=== PATIENT | female | born 1990 | race Caucasian/White ===

== ENCOUNTER 2016-03-03 04:08 | Emergency (ER) | payer BC ==
[2016-03-03] MEDS ORDERED: NS 0.9% 1000 ML* 1,000 ML IV ONE (04:38)
[2016-03-03] MEDS ORDERED: Morphine INJ* 2 MG/ML 1 ML CARPUJECT IV ONE ×2 (04:38→05:25)
[2016-03-03 05:02] LABS: Hematocrit 41 % (35-47); Hemoglobin 13.6 g/dl (12.0-16.0); Mean Corpuscular HGB Conc 34 g/dl (31-36); Mean Corpuscular Hemoglobin 31 pg (27-31); Mean Corpuscular Volume 91 fL (80-97); Mean Platelet Volume 8 um3 (7.4-10.4); Red Blood Count 4.46 10^6/ul (4.0-5.4); Red Cell Distribution Width 12 % (10.5-15); White Blood Count 6.5 10^3/ul (3.5-10.8)
--- NOTE | 2016-03-03 05:05 | ED ---
Santiago Rogers Billy, scribed for Neil Pelayo MD on 03/03/16 at 0445 . Abdominal Pain/Female - HPI Summary HPI Summary: Patient is a 25 year-old female coming to [facility] with epigastric abdominal pain radiating to the LUQ and back. She states that she was woken up by the pain this morning at 0100, and it has remained constant since onset. Severity 7/10 at this time. She took Zofran at 0330, but nothing makes the pain better or worse. She also reports intermittent "hot flashes." Denies any N/V/D or urinary symptoms. She was normal last night before bed. LMP 1 month ago. - History of Current Complaint Chief Complaint: EDAbdPain Stated Complaint: ULQ PAIN Time Seen by Provider: 03/03/16 04:17 Hx Obtained From: Patient Onset/Duration: Sudden Onset, Lasting Hours, Still Present Timing: Constant Severity Initially: Moderate Severity Currently: Moderate Pain Intensity: 7 Pain Scale Used: 0-10 Numeric Location: Epigastric Radiates: Yes Radiates to: Back, Other - LUQ Aggravating Factor(s): Nothing Alleviating Factor(s): Nothing Associated Signs and Symptoms: Positive: Nausea, Vomiting, Diarrhea, Other: - hot flashes. Negative: Urinary Symptoms Allergies/Adverse Reactions: Allergies Allergy/AdvReac Type Severity Reaction Status Date / Time Latex Allergy Unknown Unknown Verified 03/03/16 04:25 Reaction Details Home Medications: Home Medications Bupropion XL* [Wellbutrin XL *] 450 mg PO DAILY 03/03/16 [History Confirmed 10/10] Seasonique 0.15-0.03 &0.01 mg 1 tab PO DAILY 03/03/16 [History Confirmed ] PMH/Surg Hx/FS Hx/Imm Hx Endocrine/Hematology History: Denies: Hx Diabetes Psychiatric History: Reports: Hx Anxiety, Hx Depression - Surgical History Surgery Procedure, Year, and Place: 08/2006 bilateral augmentation mammoplasty. wisdom teeth - Immunization History Date of Tetanus Vaccine: utd Date of Influenza Vaccine: 2014 Infectious Disease History: No Infectious Disease History: Denies: Traveled Outside the [place] in Last 30 Days - Family History Known Family History: Positive: Cardiac Disease, Hypertension, Respiratory Disease - Social History Alcohol Use: None Substance Use Type: Reports: None Smoking Status (MU): Former Smoker Review of Systems Positive: Other - "hot flashes" Positive: Abdominal Pain. Negative: Vomiting, Diarrhea, Nausea Negative: dysuria All Other Systems Reviewed And Are Negative: Yes Physical Exam Triage Information Reviewed: Yes Vital Signs On Initial Exam: Initial Vitals Temp Pulse Resp BP Pulse Ox 98.7 F 88 14 127/75 99 03/03/16 04:19 03/03/16 04:19 03/03/16 04:19 03/03/16 04:19 03/03/16 04:19 Vital Signs Reviewed: Yes Appearance: Positive: Well-Appearing, Pain Distress - mild discomfort Skin: Positive: Warm Head/Face: Positive: Normal Head/Face Inspection Eyes: Positive: LITA ENT: Positive: Hearing grossly normal Neck: Positive: Supple Respiratory/Lung Sounds: Positive: Breath Sounds Present Cardiovascular: Positive: Normal Abdomen Description: Positive: No Organomegaly, Soft, Other: - mild upper abd tenderness to palp. Negative: CVA Tenderness (R), CVA Tenderness (L), Distended , Guarding Bowel Sounds: Positive: Present Musculoskeletal: Positive: Strength/ROM Intact Neurological: Positive: Sensory/Motor Intact, Alert, Oriented to Person Place, Time Psychiatric: Positive: Normal - Rachel Coma Scale Coma Scale Total: 15 Diagnostics - Vital Signs Vital Signs Temp Pulse Resp BP Pulse Ox 03/03/16 04:19 98.7 F 88 14 127/75 99 - Laboratory Lab Results: Lab Results 03/03/16 Range/Units 04:35 WBC 6.5 (3.5-10.8) 10^3/ul RBC 4.46 (4.0-5.4) 10^6/ul Hgb 13.6 (12.0-16.0) g/dl Hct 41 (35-47) % MCV 91 (80-97) fL MCH 31 (27-31) pg MCHC 34 (31-36) g/dl RDW 12 (10.5-15) % Plt Count 311 (150-450) 10^3/ul MPV 8 (7.4-10.4) um3 Neut % (Auto) 62.6 (38-83) % Lymph % (Auto) 28.5 (25-47) % Major % (Auto) 5.9 (1-9) % Eos % (Auto) 2.4 (0-6) % Baso % (Auto) 0.6 (0-2) % Absolute Neuts (auto) 4.1 (1.5-7.7) 10^3/ul Absolute Lymphs (auto) 1.8 (1.0-4.8) 10^3/ul Absolute Monos (auto) 0.4 (0-0.8) 10^3/ul Absolute Eos (auto) 0.2 (0-0.6) 10^3/ul Absolute Basos (auto) 0 (0-0.2) 10^3/ul Absolute Nucleated RBC 0.01 10^3/ul Nucleated RBC % 0.1 Monoscreen Pending Result Diagrams: 03/03/16 04:35 03/03/16 04:35 Lab Statement: Any lab studies that have been ordered have been reviewed, and results considered in the medical decision making process. Re-Evaluation - Re-Evaluation First Eval Re-Evaluation Time: 06:30 - mildly improved after oradol, awaiting ct Abdominal Pain Fem Course/Dx - Diagnoses Provider Diagnoses: Gall stones, Hematuria Discharge - Discharge Plan Condition: Improved Disposition: HOME Prescriptions: oxyCODONE/Acetamin 5/325 MG* [Percocet 5/325 TAB*] 1 tab PO Q6H PRN #20 tab MDD 4 PRN Reason: pain traMADol TAB* [Ultram*] 50 mg PO Q6HR PRN #20 tab MDD 4 PRN Reason: pain Patient Education Materials: Oxycodone/Acetaminophen (By mouth), Tramadol (By mouth), Gallstones (ED), Diverticulosis (ED), Hematuria (ED), Diverticulosis Diet (ED) Referrals: Francesco Frey MD [Primary Care Provider] - 2 Days Additional Instructions: Please follow-up with your primary care physician in two days. The documentation as recorded by the Santiago devi Billy accurately reflects the service I personally performed and the decisions made by , Neil Pelayo MD.
[2016-03-03 05:10] LABS: ALT 25 U/L (7-52); AST 16 U/L (13-39); Albumin 4.1 g/dL (3.2-5.2); Alkaline Phosphatase 38 U/L (34-104); Anion Gap 6 mmol/L (2-11); BUN/Creatinine Ratio 10.5 (8-20); Blood Urea Nitrogen 10 mg/dL (6-24); C Reactive Protein 2.98 mg/L (< 5.00); CO2 Carbon Dioxide 25 mmol/L (22-32); Calcium 8.8 mg/dL (8.6-10.3); Chloride 105 mmol/L (101-111); EGFR African American 90.7 (>60); EGFR Non-African American 70.6 (>60); Glucose 109 mg/dL (70-100); Lipase 30 U/L (11.0-82.0); Potassium 3.6 mmol/L (3.5-5.0); Sodium 136 mmol/L (133-145); Total Protein 7.1 g/dL (6.4-8.9)
[2016-03-03 05:33] LABS: Urine Bacteria Absent (Absent); Urine Bilirubin Negative (Negative); Urine Glucose Negative (Negative); Urine Nitrite Negative (Negative)
[2016-03-03 05:34] LABS: Manual Entry Verification LOR0008; Mono Internal Control QC Line Present
[2016-03-03] MEDS ORDERED: Ketorolac INJ* 30 MG/ML 1 ML VIAL IV PUSH ONE (05:40)
[2016-03-03] MEDS ORDERED: Iohexol 300* (CONTRAST) 10 ML SDV IV ONE (05:57)
--- NOTE | 2016-03-03 07:55 | RAD ---
CLINICAL HISTORY: Pain, left upper quadrant pain COMPARISON: None TECHNIQUE: Multiple contiguous axial CT scans were obtained of the abdomen and pelvis after the administration of intravenous contrast. Coronal and sagittal multiplanar reformations are submitted for review. Oral contrast was administered. Delayed images were obtained through the abdomen FINDINGS: LUNG BASES: The lung bases are clear. LIVER: The liver is normal in shape, size, contour, and attenuation. BILE DUCTS: There is no intrahepatic or extrahepatic biliary dilatation. GALLBLADDER: Multiple gallstones are noted. There is no pericholecystic inflammatory change. PANCREAS: The pancreas is normal, without mass or ductal dilatation. SPLEEN: Normal in size and appearance. UPPER GI TRACT: Evaluation of the gastrointestinal tract is limited by incomplete gastric distention. The upper GI tract is unremarkable. SMALL BOWEL AND MESENTERY: The small bowel is normal in contour, course, and caliber. There is no obstruction or dilatation. COLON: The colon is normal in contour, course, caliber. There is no pericolonic inflammatory change. There are occasional diverticula of the proximal descending colon in the region of the splenic flexure. ADRENALS: Normal bilaterally. KIDNEYS: The kidneys are normal in shape, size, contour, and axis. There is no hydronephrosis or nephrolithiasis. BLADDER: The bladder is smooth in contour. PELVIC ORGANS: The uterus and adnexa are grossly normal for technique. AORTA: The aorta is normal. IVC: Unremarkable LYMPH NODES: There is no lymphadenopathy by size criteria. ABDOMINAL WALL: There is no evidence for abdominal wall hernia. Metallic jewelry is noted in relation to the anterior abdominal wall. BONES AND SOFT TISSUES: There are mild diffuse degenerative changes. OTHER: None IMPRESSION: 1. SCATTERED DIVERTICULA OF THE PROXIMAL DESCENDING COLON THE REGION OF THE SPLENIC FLEXURE. 2. CHOLELITHIASIS
[2016-03-03] MEDS ORDERED: oxyCODONE/Acetamin 5/325 MG* TAB PO ONE (08:11)
[2016-03-03 08:13] VITALS: BP 106/72
[2016-03-03] MEDS ORDERED: traMADol TAB* 50 MG PO ONE (08:24)
[2016-03-03] MEDS ORDERED: traMADol TAB* 50 MG ONE (08:39)
--- NOTE | 2016-03-03 08:41 | ED ---
Zach Rogers Matthew, scribed for Everardo Bautista MD on 03/03/16 at 0730 . Progress - Progress Note Progress Note: The patient is a sign out from Dr. Pelayo. The patient woke-up with LUQ and epigastric pain that radiated to the back. She had pain with deep breaths. She denies dysuria, hematuria, SOB, and CP. She recently had a URI, but she does not have a cough currently. She had never had pain like this before. She is not having menses. The patient is RRR. No CVA tenderness, No abdominal tenderness, No reproducible pain. Labs were reviewed, currently pending CT results, and the patient does not have pain at this time. The patient is in stable condition and will be discharged home. - Results/Orders Results/Orders: A/P CT IMPRESSION: 1. SCATTERED DIVERTICULA OF THE PROXIMAL DESCENDING COLON THE REGION OF THE SPLENIC FLEXURE. 2. CHOLELITHIASIS Re-Evaluation - Re-Evaluation First Eval Re-Evaluation Time: 06:30 - mildly improved after toradol, awaiting ct Second Eval Re-Evaluation Time: 07:29 Change: Improved Comment: The patient does not have pain at this time. Third Eval Re-Evaluation Time: 08:11 Change: Improved Comment: Reviewed lab results and CT results with the patient. She understands and agrees with the treatment plan. Course/Dx - Diagnoses Provider Diagnoses: Gall stones, Hematuria The documentation as recorded by the Zach devi Matthew accurately reflects the service I personally performed and the decisions made by me, Everardo Bautista MD.
== END 2016-03-03 08:48 | disposition home or self-care (01) ==
LOC: ED 04:08
DX: K80.20 Calculus of gallbladder without cholecystitis without obstruction (principal); R10.12 Left upper quadrant pain; R31.9 Hematuria, unspecified; R11.2 Nausea with vomiting, unspecified; R19.7 Diarrhea, unspecified; Z87.891 Personal history of nicotine dependence
CPT/HCPCS: 36415; 74177; 80053; 81003; 81015; 83605; 83690; 83735; 84702; 85025; 86140; 86308; 87086; 96374; 96375; 99283; A9270-GY; J1885; J2270; Q9967

== ENCOUNTER 2016-05-31 07:42 | Emergency (ER) | payer BC ==
[2016-05-31] MEDS ORDERED: Pantoprazole IV* 40 MG IV ONE (08:19)
[2016-05-31] MEDS ORDERED: Ketorolac INJ* 30 MG/ML 1 ML VIAL IV ONE (08:19)
[2016-05-31 08:35] LABS: Hematocrit 42 % (35-47); Mean Corpuscular HGB Conc 34 g/dl (31-36); Mean Corpuscular Hemoglobin 31 pg (27-31); Mean Corpuscular Volume 91 fL (80-97); Mean Platelet Volume 8 um3 (7.4-10.4); Red Blood Count 4.58 10^6/ul (4.0-5.4); Red Cell Distribution Width 12 % (10.5-15); White Blood Count 5.7 10^3/ul (3.5-10.8)
[2016-05-31 08:55] LABS: Albumin 4.3 g/dL (3.2-5.2); BUN/Creatinine Ratio 18.5 (8-20); C Reactive Protein 5.28 mg/L (< 5.00); Calcium 9.4 mg/dL (8.6-10.3); EGFR African American 94.2 (>60); EGFR Non-African American 73.2 (>60); Globulin 3.1 g/dL (2-4); Potassium 4.2 mmol/L (3.5-5.0); Total Bilirubin 0.5 mg/dL (0.2-1.0); Total Protein 7.4 g/dL (6.4-8.9)
[2016-05-31 08:58] LABS: Urine Bilirubin Negative (Negative); Urine Glucose Negative (Negative); Urine Nitrite Negative (Negative)
--- NOTE | 2016-05-31 09:03 | RAD ---
Indication: Epigastric and LEFT upper quadrant abdominal pain radiating to the back. Symptoms for one year. Equivocal history of urolithiasis. History of cholelithiasis. Comparison: March 03, 2016 CT. Technique: Supine and upright views of the abdomen. Report: Normal bowel gas pattern. Negative for free air beneath the diaphragm. No suspicious calcifications or mass effect. Unremarkable soft tissue contours. Clear visualized lung bases. IMPRESSION: No acute abdominal pelvic pathologic process evident.
[2016-05-31 09:52] VITALS: BP 109/67
--- NOTE | 2016-05-31 10:15 | ED ---
Angel Rogers Alok, scribed for Randall Brannon MD on 05/31/16 at 0829 . Abdominal Pain/Female - HPI Summary HPI Summary: 25 y/o female presents to the ED with epigastric pain for the last 6 months. This pain waxes and wanes in intensity but is present on most days. This pain which got worse last night, after eating a light meal, prompted her visit to the ED today and currently registers at a 7 out of 10 in severity. The pain begins in the middle of the epigastric and radiates to the LUQ. This pain previously used to radiate to the back as well but pt denies back pain currently. Pt states that during her last visit to the ED she was given morphine which aggravated her pain followed by Toradol which alleviated her pain. Pt denies any N/V, or weight loss/gain. Pt last had a CT 3 months ago which showed gallstones. Pt denies tobacco use and drinks EtOH rarely. Her LMP was 1.5 month ago and usually has 4 per year. Pt is on the BP Seasonique. She has an appointment for an endoscopy on 06/04/[address] Diaz and appointment for kidney imaging the 06/06/16. She has been seen by Doctors Tk (Family Medicine) and Sara (Surgery) in the past as well as Dr. Banks (OR). - History of Current Complaint Chief Complaint: EDAbdPain Stated Complaint: ABD PAIN Time Seen by Provider: 05/31/16 07:58 Hx Obtained From: Patient ?: No Onset/Duration: Gradual Onset, Lasting Weeks, Still Present Timing: Constant Severity Initially: Moderate Severity Currently: Moderate Pain Intensity: 7 Pain Scale Used: 0-10 Numeric Location: Epigastric Radiates: Yes Radiates to: Other - LUQ Aggravating Factor(s): Other: - Morphine Alleviating Factor(s): Medications - Toradol Associated Signs and Symptoms: Negative: Back Pain, Nausea, Vomiting, Other: - Weight loss/gain Allergies/Adverse Reactions: Allergies Allergy/AdvReac Type Severity Reaction Status Date / Time Latex Allergy Unknown Unknown Verified 05/31/16 08:21 Reaction Details PMH/Surg Hx/FS Hx/Imm Hx Endocrine/Hematology History: Denies: Hx Diabetes Cardiovascular History: Denies: Hx Hypertension History: Denies: Hx Renal Disease Psychiatric History: Reports: Hx Anxiety, Hx Depression - Surgical History Surgery Procedure, Year, and Place: 08/2006 bilateral augmentation mammoplasty. wisdom teeth - Immunization History Date of Tetanus Vaccine: utd Date of Influenza Vaccine: 2014 Infectious Disease History: No Infectious Disease History: Denies: Traveled Outside the [place] in Last 30 Days - Family History Known Family History: Positive: Cardiac Disease, Hypertension, Respiratory Disease, Other - Gallbladder removal, Kidney stones - Social History Occupation: Employed Full-time Lives: With Family - Mother Alcohol Use: None Substance Use Type: Reports: None Smoking Status (MU): Former Smoker Review of Systems Negative: Fever Positive: Abdominal Pain - Epigastric . Negative: Vomiting, Nausea, Other - Weight loss/gain Negative: Other - Back Pain All Other Systems Reviewed And Are Negative: Yes Physical Exam - Summary Physical Exam Summary: VITAL SIGNS: Reviewed. GENERAL: ~Patient is a well developed malnourished female secondary to pain who is lying comfortable in the stretcher. ~Patient is not in any acute respiratory distress. HEAD AND FACE: Normocephalic EYES: PERRLA, EOMI x 2. EARS: Hearing grossly intact. MOUTH: Oropharynx within normal limits. NECK: Supple, trachea is midline, no adenopathy, no JVD, no carotid bruit. CHEST: Symmetric, no tenderness at palpation LUNGS: Clear to auscultation bilaterally. No wheezing or crackles. CVS: Regular rate and rhythm, S1 and S2 present, no murmurs or gallops appreciated. ABDOMEN: Epigastric tenderness. No rebound. No Guarding. Bowel sounds present. EXTREMITIES: Full ROM in all major joints, no edema, no cyanosis or clubbing. NEURO: Alert and oriented x 3. No acute neurological deficits. Speech is normal and follows commands. SKIN: Dry and warm Triage Information Reviewed: Yes Vital Signs On Initial Exam: Initial Vitals Temp Pulse Resp BP Pulse Ox 97.5 F 91 16 137/84 100 05/31/16 07:45 05/31/16 07:45 05/31/16 07:45 05/31/16 07:45 05/31/16 07:45 Vital Signs Reviewed: Yes - Mcclelland Coma Scale Coma Scale Total: 15 Diagnostics - Vital Signs Vital Signs Temp Pulse Resp BP Pulse Ox 05/31/16 08:10 97.9 F 89 16 135/82 98 05/31/16 07:45 97.5 F 91 16 137/84 100 - Laboratory Lab Results: Lab Results 05/31/16 05/31/16 05/31/16 Range/Units 07:55 08:25 08:25 WBC 5.7 (3.5-10.8) 10^3/ul RBC 4.58 (4.0-5.4) 10^6/ul Hgb 14.0 (12.0-16.0) g/dl Hct 42 (35-47) % MCV 91 (80-97) fL MCH 31 (27-31) pg MCHC 34 (31-36) g/dl RDW 12 (10.5-15) % Plt Count 328 (150-450) 10^3/ul MPV 8 (7.4-10.4) um3 Neut % (Auto) 57.5 (38-83) % Lymph % (Auto) 30.7 (25-47) % [place] % (Auto) 7.0 (1-9) % Eos % (Auto) 4.1 (0-6) % Baso % (Auto) 0.7 (0-2) % Absolute Neuts (auto) 3.3 (1.5-7.7) 10^3/ul Absolute Lymphs (auto) 1.7 (1.0-4.8) 10^3/ul Absolute Monos (auto) 0.4 (0-0.8) 10^3/ul Absolute Eos (auto) 0.2 (0-0.6) 10^3/ul Absolute Basos (auto) 0 (0-0.2) 10^3/ul Absolute Nucleated RBC 0 10^3/ul Nucleated RBC % 0 Sodium 137 (133-145) mmol/L Potassium 4.2 (3.5-5.0) mmol/L Chloride 105 (101-111) mmol/L Carbon Dioxide 25 (22-32) mmol/L Anion Gap 7 (2-11) mmol/L BUN 17 (6-24) mg/dL Creatinine 0.92 (0.51-0.95) mg/dL Est GFR ( Amer) 94.2 (>60) Est GFR (Non-Af Amer) 73.2 (>60) BUN/Creatinine Ratio 18.5 (8-20) Glucose 102 H (70-100) mg/dL Lactic Acid (0.5-2.0) mmol/L Calcium 9.4 (8.6-10.3) mg/dL Magnesium 2.0 (1.9-2.7) mg/dL Total Bilirubin 0.50 (0.2-1.0) mg/dL AST 16 (13-39) U/L ALT 26 (7-52) U/L Alkaline Phosphatase 42 (34-104) U/L Troponin I 0.00 (<0.04) ng/mL C-Reactive Protein 5.28 H (< 5.00) mg/L Total Protein 7.4 (6.4-8.9) g/dL Albumin 4.3 (3.2-5.2) g/dL Globulin 3.1 (2-4) g/dL Albumin/Globulin Ratio 1.4 (1-3) Amylase 55 (29-103) U/L Lipase 37 (11.0-82.0) U/L Urine Color Yellow Urine Appearance Clear Urine pH 6.0 (5-9) Ur Specific [place] 1.012 (1.010-1.030) Urine Protein Negative (Negative) Urine Ketones Negative (Negative) Urine Blood Negative (Negative) Urine Nitrate Negative (Negative) Urine Bilirubin Negative (Negative) Urine Urobilinogen Negative (Negative) Ur Leukocyte Esterase Negative (Negative) Urine Glucose Negative (Negative) 05/31/16 Range/Units 08:25 WBC (3.5-10.8) 10^3/ul RBC (4.0-5.4) 10^6/ul Hgb (12.0-16.0) g/dl Hct (35-47) % MCV (80-97) fL MCH (27-31) pg MCHC (31-36) g/dl RDW (10.5-15) % Plt Count (150-450) 10^3/ul MPV (7.4-10.4) um3 Neut % (Auto) (38-83) % Lymph % (Auto) (25-47) % Meeker % (Auto) (1-9) % Eos % (Auto) (0-6) % Baso % (Auto) (0-2) % Absolute Neuts (auto) (1.5-7.7) 10^3/ul Absolute Lymphs (auto) (1.0-4.8) 10^3/ul Absolute Monos (auto) (0-0.8) 10^3/ul Absolute Eos (auto) (0-0.6) 10^3/ul Absolute Basos (auto) (0-0.2) 10^3/ul Absolute Nucleated RBC 10^3/ul Nucleated RBC % Sodium (133-145) mmol/L Potassium (3.5-5.0) mmol/L Chloride (101-111) mmol/L Carbon Dioxide (22-32) mmol/L Anion Gap (2-11) mmol/L BUN (6-24) mg/dL Creatinine (0.51-0.95) mg/dL Est GFR ( Amer) (>60) Est GFR (Non-Af Amer) (>60) BUN/Creatinine Ratio (8-20) Glucose (70-100) mg/dL Lactic Acid 0.5 (0.5-2.0) mmol/L Calcium (8.6-10.3) mg/dL Magnesium (1.9-2.7) mg/dL Total Bilirubin (0.2-1.0) mg/dL AST (13-39) U/L ALT (7-52) U/L Alkaline Phosphatase (34-104) U/L Troponin I (<0.04) ng/mL C-Reactive Protein (< 5.00) mg/L Total Protein (6.4-8.9) g/dL Albumin (3.2-5.2) g/dL Globulin (2-4) g/dL Albumin/Globulin Ratio (1-3) Amylase (29-103) U/L Lipase (11.0-82.0) U/L Urine Color Urine Appearance Urine pH (5-9) Ur Specific [place] (1.010-1.030) Urine Protein (Negative) Urine Ketones (Negative) Urine Blood (Negative) Urine Nitrate (Negative) Urine Bilirubin (Negative) Urine Urobilinogen (Negative) Ur Leukocyte Esterase (Negative) Urine Glucose (Negative) Result Diagrams: 05/31/16 08:25 05/31/16 08:25 Lab Statement: Any lab studies that have been ordered have been reviewed, and results considered in the medical decision making process. - Radiology Abd XRAY Xray Interpretation: Positive (See Comments) - IMPRESSION: No acute abdominal pelvic pathologic process evident. Radiology Interpretation Completed By: Radiologist - EKG 0840 Cardiac Rate: NL EKG Rhythm: Sinus Rhythm - 77 bpm EKG Interpretation: No ST Elevation Re-Evaluation - Re-Evaluation First Eval Re-Evaluation Time: 09:13 Abdominal Pain Fem Course/Dx - Course Course Of Treatment: 25 y/o female presents to the ED with epigastric pain for the last 6 months. This pain waxes and wanes in intensity but is present on most days. This pain which got worse last night, after eating a light meal, prompted her visit to the ED today and currently registers at a 7 out of 10 in severity. The pain begins in the middle of the epigastric and radiates to the LUQ. This pain previously used to radiate to the back as well but pt denies back pain currently. Pt states that during her last visit to the ED she was given morphine which aggravated her pain followed by Toradol which alleviated her pain. Pt denies any N/V, or weight loss/gain. Pt last had a CT 3 months ago which showed gallstones. Pt denies tobacco use and drinks EtOH rarely. Her LMP was 1.5 month ago and usually has 4 per year. Pt is on the BP Seasonique. She has an appointment for an endoscopy on 06/04/[address] Diaz and appointment for kidney imaging the 06/06/16. She has been seen by Doctors Tk (Family Medicine) and Sara (Surgery) in the past as well as Dr. Banks (OR). Blood work wnl. UA shows no UTI. I have no suspicion for Renal colic since patient has no CVAT and no blood in the urine. No suspicion ofr appendicitis since she has no RLQ pain an no increased WBC's. She revcently had a RUQ U/S and it was inconclusive but Dr. Ruiz does not think it is a Gal bladder problem. In the ED course she was given IVF, protonix and she requested for one dose of Toradol for the pain since in the past it has work for her. She has an schedule endoscopy on Friday with Dr. Diaz. After these medications all her symptoms resolved. She declines an abdominal and pelvic CT since recently she had one with normal results. Since patient is asymptomatic she will; be discharged home with f/u of PMD and GI. I discussed all the findings and test results with the patient. Patient was instructed to return to the emergency room immediately if any of the symptoms return or worsens. They were explained the possibility of an early abdominal pathology which was not detected at this time despite the physical exam and testing. They understand and agree. Abdominal exam before discharge: Soft, NT. No signs of distention. BS present. No rebound no guarding, and no masses palpated. Patient is alert and oriented and hemodynamically stable. Patient is to follow up with primary care physician in the next 2 to 3 days. Patient agree and understands. - Diagnoses Differential Diagnosis: Positive: Gall Bladder Disease, Renal Colic, Urinary Tract Infection, Other - GERD, Gastritis Provider Diagnoses: Abdominal pain Discharge - Discharge Plan Condition: Stable Disposition: HOME Patient Education Materials: Abdominal Pain (ED) Referrals: Francesco Frey MD [Primary Care Provider] - The documentation as recorded by the Angel devi Alok accurately reflects the service I personally performed and the decisions made by Clovis meza Walter, MD.
== END 2016-05-31 09:52 | disposition home or self-care (01) ==
LOC: ED 07:42
DX: R10.13 Epigastric pain (principal); R10.12 Left upper quadrant pain; Z87.891 Personal history of nicotine dependence
CPT/HCPCS: 36415; 74020; 80053; 81003; 82150; 83605; 83690; 83735; 84484; 85025; 86140; 93005; 96374; 96375; 99282; J1885

== ENCOUNTER 2016-07-24 01:42 | Emergency (ER) | payer SELFPAY ==
[2016-07-24] MEDS ORDERED: Sucralfate SUSP 1 GM/10 ml 10 ML UDC PO ONE (02:11)
[2016-07-24] MEDS ORDERED: Ketorolac INJ* 60 MG/2 ML VIAL IM ONE (02:11)
--- NOTE | 2016-07-24 02:21 | ED ---
Abdominal Pain/Female - HPI Summary HPI Summary: Patient presents to ED with CC of epigastric pain radiating to the left upper quadrant. Patient awoke with pain this evening. This is third time this has happened and she has been closely followed by Dr. Diaz and Dr. Boykin. She has a 4mm kidney stone on the left kidney which is non-obstructing. She also has seen Dr. Todd for gallstones. Both providers state this is not likely the cause her problems. She notes to the only thing dissipating the is toradol. Morphine has made the pain worse in the past. She is requesting toradol and would like to follow up with Dr. Boykin again. - History of Current Complaint Chief Complaint: EDAbdPain Stated Complaint: ABD PAIN Time Seen by Provider: 07/24/16 02:01 Hx Obtained From: Patient ?: No Onset/Duration: Sudden Onset Timing: Constant Severity Initially: Moderate Severity Currently: Moderate Pain Intensity: 5 Location: Epigastric Radiates: No Character: Sharp Aggravating Factor(s): Nothing Alleviating Factor(s): Other: - toradol Associated Signs and Symptoms: Positive: Negative - Risk Factors Ectopic Risk Factor: Negative Ovarian Torsion Risk Factor: Reproductive Age Allergies/Adverse Reactions: Allergies Allergy/AdvReac Type Severity Reaction Status Date / Time Latex Allergy Unknown Unknown Verified 06/04/16 12:00 Reaction Details Adhesive Tape Allergy Unknown Verified 06/04/16 12:00 Reaction Details PMH/Surg Hx/FS Hx/Imm Hx Previously Healthy: Yes Endocrine/Hematology History: Denies: Hx Diabetes Cardiovascular History: Denies: Hx Hypertension History: Denies: Hx Renal Disease Psychiatric History: Reports: Hx Anxiety, Hx Depression - Surgical History Surgery Procedure, Year, and Place: 08/2006 bilateral augmentation mammoplasty. wisdom teeth - Immunization History Date of Tetanus Vaccine: utd Date of Influenza Vaccine: 2014 Hx Pertussis Vaccination: No Immunizations Up to Date: Unable to Obtain/Confirm Infectious Disease History: No Infectious Disease History: Denies: Traveled Outside the [place] in Last 30 Days - Family History Known Family History: Positive: Cardiac Disease, Hypertension, Respiratory Disease, Other - Gallbladder removal, Kidney stones - Social History Occupation: Employed Full-time Lives: With Family Alcohol Use: None Hx Substance Use: No Substance Use Type: Reports: None Hx Tobacco Use: No Smoking Status (MU): Former Smoker Review of Systems Constitutional: Negative Eyes: Negative Cardiovascular: Negative Respiratory: Negative Positive: Abdominal Pain Genitourinary: Negative Positive: no symptoms reported, see HPI Skin: Negative Neurological: Negative All Other Systems Reviewed And Are Negative: Yes Physical Exam Triage Information Reviewed: Yes Vital Signs On Initial Exam: Initial Vitals Temp Pulse Resp BP Pulse Ox 97.5 F 88 18 128/88 100 07/24/16 01:47 07/24/16 01:47 07/24/16 01:47 07/24/16 01:47 07/24/16 01:47 Vital Signs Reviewed: Yes Appearance: Positive: Well-Appearing, Well-Nourished Skin: Positive: Warm, Skin Color Reflects Adequate Perfusion Head/Face: Positive: Normal Head/Face Inspection Eyes: Positive: EOMI, LITA, Conjunctiva Clear Neck: Positive: Supple, Nontender, No Lymphadenopathy Respiratory/Lung Sounds: Positive: Clear to Auscultation, Breath Sounds Present Cardiovascular: Positive: Normal, RRR, Pulses are Symmetrical in both Upper and Lower Extremities Abdomen Description: Positive: Soft, Other: - tenderness in epigastric area without radiation on palpation Bowel Sounds: Positive: Present Musculoskeletal: Positive: Normal, Strength/ROM Intact Neurological: Positive: Normal, Sensory/Motor Intact, Speech Normal Psychiatric: Positive: Normal AVPU Assessment: Alert Diagnostics - Vital Signs Vital Signs Temp Pulse Resp BP Pulse Ox 07/24/16 01:48 97.5 F 88 18 128/86 100 07/24/16 01:47 97.5 F 88 18 128/88 100 - Laboratory Lab Statement: Any lab studies that have been ordered have been reviewed, and results considered in the medical decision making process. Abdominal Pain Fem Course/Dx - Course Course Of Treatment: Patient presents with epigastric pain. 3rd episode. She is seen by Dr. Boykin and Dr. Diaz. An endoscopy found no acute findings. Upon last visit, Toradol was given and she stated this was the only medication which improved her symptoms. She is requesting toradol at this visit. 60mg Toradol given IM. Patient feeling better and OK to discharge. Will follow up with Dr. Boykin and Dr. Diaz next week. - Diagnoses Differential Diagnosis: Positive: Constipation, Pancreatitis, Renal Colic, Urinary Tract Infection Provider Diagnoses: Epigastric pain Discharge - Discharge Plan Condition: Stable Disposition: HOME Prescriptions: Ketorolac TAB * [Toradol TAB *] 10 mg PO Q6H #20 tab Patient Education Materials: Epigastric Pain (ED) Referrals: Francesco Frey MD [Primary Care Provider] - Additional Instructions: Follow up with PCP I have given you a prescription for toradol - 20 tabs Take 2 tabs at first onset of pain, then 1 tab eveyr 6 hours as needed for pain
[2016-07-24 02:47] VITALS: BP 120/80
== END 2016-07-24 02:35 | disposition home or self-care (01) ==
LOC: ED 01:42
DX: R10.13 Epigastric pain (principal)
CPT/HCPCS: 96372; 99282; A9270-GY; J1885

== ENCOUNTER 2016-09-07 08:19 | Emergency (ER) | payer SELFPAY ==
[2016-09-07] MEDS ORDERED: Ketorolac INJ* 30 MG/ML 1 ML VIAL IV PUSH ONE (09:08)
--- NOTE | 2016-09-07 09:55 | ED ---
Abdominal Pain/Female - HPI Summary HPI Summary: Pt here w/ epigastric and LUQ pain since February 2016. Her pain is worse today as it typically spike once a month to a more severe level. Wakes her from sleep at times. She has a constant aching pain, but today is sharp, burning like a pulled muscle. Position, heat, ice, food does not alleviate nor exacerbate. Only medication that helps is toradol. Has tried ibuprofen, morphine (made it worse at a hospital visit once), dexilant, and sucralfate - no change. Denies N/ V/D, fever chills. H/o constipation - CT in 02/2016 showed scattered diverticula w/o inflammation. Breast implants 10 years ago: With Dr. Lockhart? Pt admits her surgery was involved as she went from a AA cup size to a C - significant tissue manipulation. Admits to B/L rib muscle discomfort the past 3 years so stopped wearing her bra which helped but Lt side pain is a mentioned about. After discussion, she has noticed her Lt breast is less full on the under side. No LN swelling, nipple d/c or skin discoloration over breast. : Has a 4mm kidney stone in kidney. Has been seen by urology who do not feel this is contributing to her pain. She has had CT, U/S w/o movement of stone and no dysuria, urinary frequency, flank pain. H/o abnormal pap - most recent results are neg for HPV. Pt has not had U/S nor MRI of ab pelvis - no known h/o ovarian cysts or uterine dysfunctoin. She takes seasonique and so period is only q 3 months however she does still have some PMS sx (ie. breast tenderness, etc). She did not have pre-existing menstrual irregularity nor pain. Mom w/ h/o uterine fibroids. Pt's CT ab/pelvis in 02/2016 revealed no abnormal tissue in this area. She has had pelvic exams since w/o abnormal findings and denies vaginal d/c, pain, irritation. GI: Has had an endoscopy w/o abnormal findings. She does have cholelithiasis however it was discussed that this is most like not causing her pain as she never has RUQ pain. Has not had a HIDA CCK. IRA: Pt has MRI if thoracic spine and lumbar spine recently. Results reviewed and no abnormal findings. - History of Current Complaint Chief Complaint: EDAbdPain Stated Complaint: ABD PAIN Time Seen by Provider: 09/07/16 08:42 Pain Intensity: 8 Allergies/Adverse Reactions: Allergies Allergy/AdvReac Type Severity Reaction Status Date / Time Latex Allergy Unknown Unknown Verified 09/07/16 08:20 Reaction Details Adhesive Tape Allergy Unknown Verified 09/07/16 08:20 Reaction Details PMH/Surg Hx/FS Hx/Imm Hx Endocrine/Hematology History: Denies: Hx Diabetes Cardiovascular History: Denies: Hx Hypertension, Hx Pacemaker/ICD History: Denies: Hx Renal Disease Sensory History: Denies: Hx Hearing Aid Psychiatric History: Reports: Hx Anxiety, Hx Depression Denies: Hx Panic Disorder - Surgical History Surgery Procedure, Year, and Place: 08/2006 bilateral augmentation mammoplasty; . wisdom teeth; - Immunization History Date of Tetanus Vaccine: utd Date of Influenza Vaccine: 2014 Infectious Disease History: No Infectious Disease History: Denies: Traveled Outside the [place] in Last 30 Days - Family History Known Family History: Positive: Cardiac Disease, Hypertension, Respiratory Disease, Other - Gallbladder removal, Kidney stones - Social History Alcohol Use: None Hx Substance Use: No Substance Use Type: Reports: None Hx Tobacco Use: No Smoking Status (MU): Former Smoker Physical Exam - Summary Physical Exam Summary: VITAL SIGNS: Reviewed. GENERAL: Patient is a well-developed and nourished female who is lying comfortable in the stretcher. Patient is not in any acute respiratory distress. HEAD AND FACE: Normocephalic and atraumatic. EYES: PERRLA, EOMI x 2, No injected conjunctiva. EARS: Hearing grossly intact. Ear canals and tympanic membranes are WNL. MOUTH: Oropharynx within normal limits. NECK: Supple, trachea is midline, no adenopathy, no JVD. CHEST: Symmetric, no tenderness at palpation LUNGS: Clear to auscultation bilaterally. No wheezing or crackles. CVS: RRR, S1 and S2 present, no murmurs or gallops appreciated. ABDOMEN: Soft, non-tender. No signs of distention. Positive bowel sounds. No rebound no guarding, and no masses palpated. No abdominal bruit or pulsations. EXTREMITIES: FROM in all major joints, no edema, no cyanosis or clubbing. NEURO: Alert and oriented x 3. No acute neurological deficits. Speech is normal. SKIN: Dry and warm Vital Signs On Initial Exam: Initial Vitals Temp Pulse Resp BP Pulse Ox 97.8 F 74 18 133/84 97 09/07/16 08:20 09/07/16 08:20 09/07/16 08:20 09/07/16 08:20 09/07/16 08:20 Diagnostics - Vital Signs Vital Signs Temp Pulse Resp BP Pulse Ox 09/07/16 08:20 97.8 F 74 18 133/84 97 - Laboratory Lab Statement: Any lab studies that have been ordered have been reviewed, and results considered in the medical decision making process.
[2016-09-07 10:31] LABS: Urine Bilirubin Negative (Negative); Urine Glucose Negative (Negative); Urine Nitrite Negative (Negative)
[2016-09-07 10:32] LABS: TSH (Thyroid Stimulating Horm) 1.9 mcIU/mL (0.34-5.60)
[2016-09-07 11:04] LABS: Hematocrit 41 % (35-47); Hemoglobin 13.5 g/dl (12.0-16.0); Mean Corpuscular HGB Conc 33 g/dl (31-36); Mean Corpuscular Hemoglobin 31 pg (27-31); Mean Corpuscular Volume 94 fL (80-97); Mean Platelet Volume 8 um3 (7.4-10.4); Red Blood Count 4.36 10^6/ul (4.0-5.4); Red Cell Distribution Width 12 % (10.5-15); White Blood Count 5.2 10^3/ul (3.5-10.8)
[2016-09-07 11:14] LABS: Albumin 4.2 g/dL (3.2-5.2); BUN/Creatinine Ratio 10.5 (8-20); Calcium 8.9 mg/dL (8.6-10.3); EGFR African American 90.1 (>60); Globulin 2.8 g/dL (2-4); Potassium 3.6 mmol/L (3.5-5.0); Total Bilirubin 0.5 mg/dL (0.2-1.0)
[2016-09-07 12:43] VITALS: BP 101/61
== END 2016-09-07 12:43 | disposition home or self-care (01) ==
LOC: ED 08:19
DX: R10.12 Left upper quadrant pain (principal); R10.13 Epigastric pain; Z87.891 Personal history of nicotine dependence
CPT/HCPCS: 36415; 80053; 81003; 83605; 84443; 85025; 85379; 96374; 99282; J1885

== ENCOUNTER 2016-10-02 01:14 | Emergency (ER) | payer SELFPAY ==
[2016-10-02] MEDS ORDERED: Ketorolac INJ* 30 MG/ML 1 ML VIAL IV ONE (01:32)
[2016-10-02] MEDS ORDERED: NS 0.9% 1000 ML* 1,000 ML IV ONE (01:32)
[2016-10-02] MEDS ORDERED: Calcium Carbonate CHEW TAB* 500 MG (TUMS) PO ONE (02:23)
[2016-10-02 02:34] VITALS: BP 96/64
--- NOTE | 2016-10-08 06:17 | ED ---
Taurus Rogers SooYoung, scribed for Neil Pelayo MD on 10/02/16 at 0135 . Abdominal Pain/Female - HPI Summary HPI Summary: A 26 y/o F presents to ED with c/o epigastric abd pain onset 2300. Pain is pinpoint and radiates to her back. She states it occurs about once a month, she usually ends up in ED and gets a Toradol shot which alleviates the pain. Denies n/v/d. Last visit to ED was on 09/07/16. - History of Current Complaint Chief Complaint: EDAbdPain Stated Complaint: ABD PAIN Time Seen by Provider: 10/02/16 01:30 Hx Obtained From: Patient Onset/Duration: Lasting Hours, Still Present Timing: Constant Severity Initially: Moderate Severity Currently: Moderate Pain Intensity: 6 Pain Scale Used: 0-10 Numeric Location: Epigastric Radiates: Yes Radiates to: Back Aggravating Factor(s): Nothing Alleviating Factor(s): Nothing Associated Signs and Symptoms: Negative: Nausea, Vomiting, Diarrhea Allergies/Adverse Reactions: Allergies Allergy/AdvReac Type Severity Reaction Status Date / Time Latex Allergy Unknown Unknown Verified 09/07/16 08:20 Reaction Details Adhesive Tape Allergy Unknown Verified 09/07/16 08:20 Reaction Details PMH/Surg Hx/FS Hx/Imm Hx Previously Healthy: No Endocrine/Hematology History: Denies: Hx Diabetes Cardiovascular History: Denies: Hx Hypertension, Hx Pacemaker/ICD GI History: Reports: Other GI Disorders - ongoing abd pain 1x month History: Denies: Hx Renal Disease Sensory History: Denies: Hx Hearing Aid Psychiatric History: Reports: Hx Anxiety, Hx Depression Denies: Hx Panic Disorder - Surgical History Surgery Procedure, Year, and Place: 08/2006 bilateral augmentation mammoplasty; . wisdom teeth; - Immunization History Date of Tetanus Vaccine: utd Date of Influenza Vaccine: 2014 Infectious Disease History: No Infectious Disease History: Denies: Traveled Outside the [place] in Last 30 Days - Family History Known Family History: Positive: Cardiac Disease, Hypertension, Respiratory Disease, Other - Gallbladder removal, Kidney stones - Social History Occupation: Employed Full-time Lives: With Family Alcohol Use: None Hx Substance Use: No Substance Use Type: Reports: None Hx Tobacco Use: Yes Smoking Status (MU): Former Smoker Review of Systems Positive: Abdominal Pain. Negative: Vomiting, Diarrhea, Nausea All Other Systems Reviewed And Are Negative: Yes Physical Exam Triage Information Reviewed: Yes Vital Signs On Initial Exam: Initial Vitals Temp Pulse Resp BP Pulse Ox 96.7 F 85 18 119/86 96 10/02/16 01:16 10/02/16 01:16 10/02/16 01:16 10/02/16 01:16 10/02/16 01:16 Vital Signs Reviewed: Yes Appearance: Positive: Well-Appearing, No Pain Distress Skin: Positive: Warm Head/Face: Positive: Normal Head/Face Inspection Eyes: Positive: EOMI ENT: Positive: Hearing grossly normal Neck: Positive: Supple Respiratory/Lung Sounds: Positive: Breath Sounds Present Cardiovascular: Positive: RRR Abdomen Description: Positive: Soft, Other: - mild epigastric tenderness Bowel Sounds: Positive: Present Musculoskeletal: Positive: Strength/ROM Intact Neurological: Positive: Alert, Oriented to Person Place, Time Psychiatric: Positive: Affect/Mood Appropriate - Rachel Coma Scale Coma Scale Total: 15 Diagnostics - Vital Signs Vital Signs Temp Pulse Resp BP Pulse Ox 10/02/16 01:24 96.7 F 85 18 119/86 96 10/02/16 01:16 96.7 F 85 18 119/86 96 - Laboratory Lab Statement: Any lab studies that have been ordered have been reviewed, and results considered in the medical decision making process. Re-Evaluation - Re-Evaluation First Eval Change: Improved Abdominal Pain Fem Course/Dx - Course Course Of Treatment: A 26 y/o F presents to ED with c/o epigastric abd pain onset 2300. Pain is pinpoint and radiates to her back. She states it occurs about once a month, she usually ends up in ED and gets a Toradol shot which alleviates the pain. Denies n/v/d. Last visit to ED was on 09/07/16. Pt refused UA and blood work. - Diagnoses Provider Diagnoses: Abdominal pain Discharge - Discharge Plan Condition: Stable Disposition: HOME Patient Education Materials: Abdominal Pain (ED) Referrals: Francesco Frey MD [Primary Care Provider] - Additional Instructions: Follow up with your primary care provider within the next 2-3 days. Please return to the ED if you experience new or worsening symptoms. The documentation as recorded by the Taurus devi SooYoung accurately reflects the service I personally performed and the decisions made by me, Neil Pelayo MD.
== END 2016-10-02 02:37 | disposition home or self-care (01) ==
LOC: ED 01:14
DX: R10.13 Epigastric pain (principal); Z87.891 Personal history of nicotine dependence
CPT/HCPCS: 96374; 99282; J1885

== ENCOUNTER 2021-11-16 06:18 | Inpatient (IN) ==
[2021-11-16] MEDS ORDERED: Buffered Lidocaine 1% SYRIN 1 ml INTRADERM ONE (08:14)
[2021-11-16] MEDS ORDERED: Lactated Ringers 1000 ml BAG 1,000 ML IV ONE (08:14)
[2021-11-16] MEDS ORDERED: Penicillin G Potassium IV 5,000,000 UNITS in NS 0.9% 100 ml BAG 100 ML IVPB ONE (08:30)
[2021-11-16 08:35] LABS: ABS Basophils 0.1 10^3/ul (0-0.2); ABS Eosinophils 0.1 10^3/ul (0-0.6); ABS Lymphocytes 1.7 10^3/ul (1.0-4.8); ABS Monocytes 0.6 10^3/ul (0-0.8); ABS Neutrophils 7.6 10^3/ul (1.5-7.7); Eosinophil % 1.3 %; Hematocrit 33 % (35-47); Hemoglobin 10.4 g/dL (12.0-16.0); Lymphocyte % 16.6 %; Mean Corpuscular HGB Conc 32 g/dL (31-36); Mean Corpuscular Hemoglobin 27 pg (27-31); Mean Corpuscular Volume 83 fL (80-97); Nucleated Red Blood Cells % 0.1; Platelet Count 302 10^3/uL (150-450); Red Blood Count 3.93 10^6 /uL (3.70-4.87); Red Cell Distribution Width 14 % (10-15); White Blood Count 10.2 10^3/uL (3.5-10.8)
[2021-11-16 08:50] LABS: Urine Benzodiazepine Screen None Detected (None Detect); Urine Cannabinoids Screen None Detected (None Detect); Urine Opiates Screen None Detected (None Detect)
[2021-11-16] MEDS ORDERED: Lactated Ringers 1000 ml BAG 1,000 ML IV SCH ×2 (09:00)
[2021-11-16] MEDS ORDERED: Penicillin G Potassium IV 3,000,000 UNITS in NS 0.9% 100 ml BAG 100 ML IVPB SCH (09:00)
[2021-11-16] MEDS ORDERED: Oxytocin in LR 20,000 MILLI.UNIT/1,000 ML BAG IV SCH (13:30)
[2021-11-16] MEDS: Penicillin G Potassium IV 3,000,000 UNITS in NS 0.9% 100 ml BAG 100 ML IVPB SCH ×3 (13:37→23:56)
[2021-11-16] MEDS ORDERED: OBEPIDURAL (200 ML) 200 ML EPIDURAL ONE (23:43)
[2021-11-16] MEDS ORDERED: Lidocaine 2% w/ EPI 1:200,000 MPF 20 ML SDV VIAL ONE (23:45)
[2021-11-17] MEDS ORDERED: Lactated Ringers 1000 ml BAG 1,000 ML IV ONE ×2 (00:41→15:20)
[2021-11-17] MEDS ORDERED: Sodium Citrate/Citric Acid LIQ 15 ML UDC PO PRN (00:41)
[2021-11-17] MEDS ORDERED: Lactated Ringers 1000 ml BAG 500 ML IV PRN ×2 (00:41)
[2021-11-17] MEDS ORDERED: Phenylephrine 40 mcg/mL 10mL (400mcg) SYRINGE IV PUSH PRN ×4 (00:41→15:20)
[2021-11-17] MEDS ORDERED: Lactated Ringers 1000 ml BAG 1,000 ML IV SCH ×4 (01:00→16:00)
[2021-11-17] MEDS ORDERED: OBEPIDURAL (200 ML) 200 ML EPIDURAL SCH (01:00)
[2021-11-17 03:20] LABS: Urine Appearance Cloudy; Urine Bilirubin Negative (Negative); Urine Blood 2+ (Negative); Urine Color Yellow; Urine Glucose Negative (Negative); Urine Ketones Negative (Negative); Urine Nitrite Negative (Negative); Urine Protein Negative (Negative); Urine Specific Gravity 1.015 (1.002-1.030); Urine Urobilinogen Negative (Negative)
[2021-11-17 03:25] LABS: Urine Bacteria 1+ (Absent); Urine Red Blood Cell Trace(0-2/hpf) (Absent); Urine White Blood Cell Absent (Absent)
[2021-11-17] MEDS: Penicillin G Potassium IV 3,000,000 UNITS in NS 0.9% 100 ml BAG 100 ML IVPB SCH ×3 (04:18→08:51)
[2021-11-17] MEDS ORDERED: Calcium Carb (TUMS) 500 mg CHEW TAB PO ONE (06:46)
[2021-11-17] MEDS ORDERED: Oxytocin in LR 20,000 MILLI.UNIT/1,000 ML BAG IV SCH ×2 (07:30→12:45)
[2021-11-17 07:45] LABS: Albumin 2.7 g/dL (3.2-5.2); Calcium 8.8 mg/dL (8.6-10.3); Globulin 2.6 g/dL (2-4); Potassium 4.1 mmol/L (3.5-5.0); Total Bilirubin 0.4 mg/dL (0.2-1.0); Total Protein 5.3 g/dL (6.4-8.9); eGFR CKD-EPI 85.4 (>60)
[2021-11-17] MEDS ORDERED: fentaNYL 100 mcg/2 ml 50 MCG/ML VIAL ONE (11:32)
[2021-11-17] MEDS ORDERED: ceFOXitin 2 GM IVPREMIX 2 GM/50 ML BAG IVPB ONE (12:36)
[2021-11-17] MEDS ORDERED: Witch Hazel PAD JAR TOPICAL PRN (12:37)
[2021-11-17] MEDS ORDERED: Dibucaine 1% OINT 28.35 GM TUBE PR PRN (12:37)
[2021-11-17] MEDS ORDERED: Glycerin ADULT 2.4 gm SUPP PR PRN (12:37)
[2021-11-17] MEDS ORDERED: Morphine PF AMP (0.5MG/ML) 5 MG/10 ML AMP ONE (13:08)
[2021-11-17] MEDS ORDERED: Metoclopramide 5 MG/ML VIAL (10 mg) ONE (13:11)
[2021-11-17] MEDS ORDERED: Ondansetron 4 mg VIAL 2 MG/ML 2 ml VIAL ONE (13:38)
[2021-11-17] MEDS ORDERED: Oxytocin 10 UNITS/ML 1 ML VIAL ONE (13:38)
[2021-11-17] MEDS ORDERED: Phenylephrine 40 mcg/mL 10mL (400mcg) SYRINGE ONE (14:43)
[2021-11-17] MEDS ORDERED: Succinylcholine 200 mg VIAL 20 mg/ml 10 ml VIAL (200 mg) ONE (14:44)
[2021-11-18 07:57] LABS: ABS Eosinophils 0.1 10^3/ul (0-0.6); ABS Lymphocytes 1.2 10^3/ul (1.0-4.8); ABS Monocytes 0.8 10^3/ul (0-0.8); ABS Neutrophils 10.8 10^3/ul (1.5-7.7); Eosinophil % 0.6 %; Hematocrit 23 % (35-47); Hemoglobin 7.3 g/dL (12.0-16.0); Mean Corpuscular HGB Conc 32 g/dL (31-36); Mean Corpuscular Hemoglobin 27 pg (27-31); Mean Corpuscular Volume 83 fL (80-97); Mean Platelet Volume 7.8 fL (7.4-10.4); Nucleated Red Blood Cells % 0.1; Platelet Count 261 10^3/uL (150-450); Red Blood Count 2.72 10^6 /uL (3.70-4.87); Red Cell Distribution Width 15 % (10-15); White Blood Count 12.8 10^3/uL (3.5-10.8)
[2021-11-18] MEDS ORDERED: Nalbuphine 10 MG/ML 1 ML VIAL IV PRN (08:34)
[2021-11-18] MEDS ORDERED: Measles, Mumps,Rubella VACC 0.5 ML/VIAL SUBCUT ONE (09:00)
[2021-11-20 11:19] VITALS: BP 115/65
== END 2021-11-20 14:03 | disposition home or self-care (01) | DRG 540 ==
LOC: MCHOBOUT 06:18 → MCHOB 07:36
PROVIDERS: ADMIT Midwife; ATTEND Midwife